=== PATIENT | male | born 1995 | race African-American/Black ===

== ENCOUNTER 2018-08-06 00:47 | Emergency (ER) | payer BC ==
[~2018-08-06] VITALS: Ht 185.4 cm; Wt 88.5 kg
[2018-08-06 00:59] VITALS: BP 133/80; Ht 185.4 cm; Wt 88.5 kg
== END 2018-08-06 01:18 | disposition home or self-care (01) ==
LOC: ED 00:47
DX: S61.215A Laceration without foreign body of left ring finger without damage to nail, initial encounter (principal); J45.909 Unspecified asthma, uncomplicated; Z88.2 Allergy status to sulfonamides; W26.8XXA Contact with other sharp object(s), not elsewhere classified, initial encounter; Y93.89 Activity, other specified; Y92.89 Other specified places as the place of occurrence of the external cause; Y99.8 Other external cause status